=== PATIENT | male | born 1965 | race Caucasian/White ===

== ENCOUNTER 2019-12-13 08:02 | Outpatient (CLI) | payer OTHER | END 2019-12-13 23:59 | disposition home or self-care (01) | LOC: PETCFH 08:02 | PROVIDERS: ATTEND Student in an Organized Health Care Education/Training Program | DX: E11.22 Type 2 diabetes mellitus with diabetic chronic kidney disease (principal); E11.21 Type 2 diabetes mellitus with diabetic nephropathy; I12.9 Hypertensive chronic kidney disease with stage 1 through stage 4 chronic kidney disease, or unspecified chronic kidney disease; N18.5 Chronic kidney disease, stage 5; R14.0 Abdominal distension (gaseous); F32.9 Major depressive disorder, single episode, unspecified; M62.81 Muscle weakness (generalized); E78.5 Hyperlipidemia, unspecified; R11.0 Nausea; Z79.4 Long term (current) use of insulin | CPT/HCPCS: 78264; A9541 ==

== ENCOUNTER 2021-01-03 09:03 | Day surgery (SDC) | payer OTHER ==
[~2021-01-03] VITALS: Ht 177.8 cm; Wt 125.4 kg
[2021-01-03 09:29] VITALS: BP 181/80
[2021-01-03] MEDS ORDERED: NOVOLOG SQ-INSULIN (09:39)
[2021-01-03] MEDS ORDERED: CINA30TA2 PO (09:39)
[2021-01-03] MEDS ORDERED: [UNRECOGNIZED DRUG - OTHER] SQ-INSULIN (09:39)
[2021-01-03] MEDS ORDERED: AMLODIPINE PO (09:39)
[2021-01-03] MEDS ORDERED: LISI40TA9 PO (09:39)
[2021-01-03] MEDS ORDERED: CALCITROL PO (09:39)
[2021-01-03] MEDS ORDERED: CHLORHEXIDINE 15 ML UDC MM ONE (10:00)
[2021-01-03] MEDS ORDERED: SODIUM CHLORIDE 0.9% 1,000 ML IV SCH (10:00)
[2021-01-03 10:15] LABS: BASOPHILS % (AUTO) 1 % (0-1); EOSINOPHILS % (AUTO) 3 % (1-7); LYMPHOCYTES % (AUTO) 17 % (22-44); MEAN CORPUSCULAR HEMOGLOBIN 32.8 pg (27.5-34.5); MEAN CORPUSCULAR HGB CONC 34.8 g/dL (33.2-36.2); MONOCYTES % (AUTO) 7 % (2-9); NEUTROPHILS % (AUTO) 72 % (42-75); PLATELET COUNT 279 x10^3/uL (130-400); RED BLOOD COUNT 3.57 x10^6/uL (4.38-5.82); RED CELL DISTRIBUTION WIDTH 14.9 % (9.4-14.8)
[2021-01-03 10:16] LABS: MD NO
[2021-01-03 10:17] LABS: INTERNATIONAL NORMALIZED RATIO 0.96 (0.93-1.1); PROTHROMBIN TIME 10.3 Seconds (9.6-11.5)
[2021-01-03 10:19] LABS: ALANINE AMINOTRANSFERASE 18 U/L (12-78); ALBUMIN 3.4 g/dL (3.4-5.0); ANION GAP 9 mmol/L (5-15); CALCIUM 9.4 mg/dL (8.5-10.1); CHLORIDE 101 mmol/L (98-107)
[2021-01-03 10:22] LABS: ALKALINE PHOSPHATASE 97 U/L (45-117); BILIRUBIN,TOTAL 0.5 mg/dL (0.2-1.0); CREATININE 7.94 mg/dL (0.7-1.3); TOTAL PROTEIN 7.6 g/dL (6.4-8.2)
[2021-01-03] MEDS ORDERED: MIDAZOLAM 1 MG/ML, 2ML ONE (10:34)
[2021-01-03] MEDS ORDERED: FENTANYL PF 100 MCG/2ML ONE (10:34)
[2021-01-03] MEDS ORDERED: BUPIVACAINE/PF 0.5% ONE (10:56)
[2021-01-03] MEDS ORDERED: PROTAMINE SULFATE 10 MG/ML, 5ML ONE (10:56)
[2021-01-03] MEDS ORDERED: EPINEPHRINE 1 MG/ML, 1ML ONE (10:57)
[2021-01-03] MEDS ORDERED: HEPARIN 1,000 UNITS/ML, 30ML ONE (10:57)
[2021-01-03] MEDS ORDERED: LORazepam 2 MG/ML, 1ML IVPush PRN (12:00)
[2021-01-03] MEDS ORDERED: ALBUTEROL SULFATE 2.5 MG/3 ML NPPB PRN (12:00)
[2021-01-03] MEDS ORDERED: PROMETHAZINE 25 MG/ML, 1ML IVPush PRN (12:00)
[2021-01-03] MEDS ORDERED: MEPERIDINE/PF 25MG/0.5ML IVPush PRN (12:00)
[2021-01-03] MEDS ORDERED: HYDROmorphone 1 MG/ML, 1ML INJ IVPush PRN (12:00)
[2021-01-03] MEDS ORDERED: FENTANYL PF 100 MCG/2ML IV PRN (12:00)
[2021-01-03] MEDS ORDERED: LABETALOL 5MG/ML, 20ML IV PRN (12:00)
[2021-01-03] MEDS ORDERED: ACETAMINOPHEN 325 MG TABLET PO PRN (12:00)
[2021-01-03] MEDS ORDERED: hydrALAzine 20 MG/ML, 1ML IV PRN (12:00)
[2021-01-03] MEDS ORDERED: OXYcodone 5 MG/5 ML ORAL.SOL UDC PO PRN (12:00)
[2021-01-03] MEDS ORDERED: CEFAZOLIN 1,000 MG ONE (12:12)
[2021-01-03] MEDS ORDERED: DEXAMETHASONE 4 MG/ML, 1ML ONE (12:12)
[2021-01-03] MEDS ORDERED: LIDOCAINE-MPF 2% ,5ML ONE (12:12)
[2021-01-03] MEDS ORDERED: ONDANSETRON 2MG/ML, 2ML ONE (12:12)
[2021-01-03] MEDS ORDERED: PROPOFOL 10 MG/ML, 20ML ONE (12:12)
[2021-01-03] MEDS ORDERED: HYDR-1067 PO ×2 (13:24→13:38)
== END 2021-01-03 14:30 | disposition home or self-care (01) ==
LOC: OUT 09:03
PROVIDERS: ATTEND Surgery
DX: I12.0 Hypertensive chronic kidney disease with stage 5 chronic kidney disease or end stage renal disease (principal); E11.22 Type 2 diabetes mellitus with diabetic chronic kidney disease; N18.6 End stage renal disease; G47.33 Obstructive sleep apnea (adult) (pediatric); E66.01 Morbid (severe) obesity due to excess calories; Z68.39 Body mass index [BMI] 39.0-39.9, adult; Z79.4 Long term (current) use of insulin; Z79.899 Other long term (current) drug therapy; Z98.890 Other specified postprocedural states; Z20.822 Contact with and (suspected) exposure to COVID-19
CPT/HCPCS: 36821; 71045; 80053; 82962; 85025; 85610; 87635; 93005; J0171; J0690; J1100; J1644; J2250; J2405; J2704; J3010; J7030; J2720

== ENCOUNTER 2021-05-09 13:53 | Day surgery (SDC) | payer OTHER ==
[2021-05-08 10:04] LABS: BASOPHILS % (AUTO) 1 % (0-1); EOSINOPHILS % (AUTO) 3 % (1-7); LYMPHOCYTES % (AUTO) 13 % (22-44); MEAN CORPUSCULAR HEMOGLOBIN 33.6 pg (27.5-34.5); MEAN CORPUSCULAR HGB CONC 35.4 g/dL (33.2-36.2); MEAN PLATELET VOLUME 7.8 fL (7.4-10.4); MONOCYTES % (AUTO) 6 % (2-9); NEUTROPHILS % (AUTO) 77 % (42-75); PLATELET COUNT 213 x10^3/uL (130-400); RED BLOOD COUNT 3.41 x10^6/uL (4.38-5.82); RED CELL DISTRIBUTION WIDTH 14.6 % (9.4-14.8)
[2021-05-08 10:09] LABS: ALBUMIN 3.7 g/dL (3.4-5.0); ANION GAP 13 mmol/L (5-15); CALCIUM 8.8 mg/dL (8.5-10.1); CHLORIDE 95 mmol/L (98-107); CREATININE 7.38 mg/dL (0.7-1.3)
[2021-05-08 10:10] LABS: INTERNATIONAL NORMALIZED RATIO 0.94 (0.93-1.1); PROTHROMBIN TIME 10.1 Seconds (9.6-11.5)
[2021-05-08 10:15] LABS: ALANINE AMINOTRANSFERASE 23 U/L (12-78); ALKALINE PHOSPHATASE 130 U/L (45-117); BILIRUBIN,TOTAL 0.5 mg/dL (0.2-1.0); TOTAL PROTEIN 8.1 g/dL (6.4-8.2)
[~2021-05-09] VITALS: Ht 177.8 cm; Wt 120.7 kg
[~2021-05-09 13:53] MED LIST: AMLO-211 PO; AMLODIPINE PO; AMOX1TAB12 PO; ASCO100019 PO; CALCITROL PO; CINA30TA2 PO; FURO80TA3 PO; HYDR-2214 PO; INSU100I37 SC; LISI40TA9 PO; NOVOLOG SQ-INSULIN; PANT20TA4 PO; SEVE800T7 PO; Vitamin B12 PO; Vitamin D3 PO; [UNRECOGNIZED DRUG - OTHER] SQ-INSULIN
[2021-05-09] MEDS ORDERED: CHLORHEXIDINE 15 ML UDC PO ONE (15:00)
[2021-05-09] MEDS ORDERED: SODIUM CHLORIDE 0.9% 1,000 ML IV SCH (15:00)
[2021-05-09 15:06] VITALS: BP 171/80
[2021-05-09] MEDS ORDERED: BUPIVACAINE/PF 0.5% ONE (16:47)
[2021-05-09] MEDS ORDERED: FENTANYL PF 250 MCG/5ML ONE (16:47)
[2021-05-09] MEDS ORDERED: HEPARIN 5,000 UNITS/ML, 1ML ONE (17:01)
[2021-05-09] MEDS ORDERED: PROTAMINE SULFATE 10 MG/ML, 5ML ONE (17:01)
[2021-05-09] MEDS ORDERED: HEPARIN 1,000 UNITS/ML, 10ML ONE (17:01)
[2021-05-09] MEDS ORDERED: MIDAZOLAM 1 MG/ML, 2ML ONE (17:08)
[2021-05-09] MEDS ORDERED: LIDOCAINE-MPF 2% ,5ML ONE (17:08)
[2021-05-09] MEDS ORDERED: EPHEDRINE 50 MG/ML, 1ML IVPush PRN (17:30)
[2021-05-09] MEDS ORDERED: ONDANSETRON 2MG/ML, 2ML IVPush PRN (17:30)
[2021-05-09] MEDS ORDERED: LABETALOL 5MG/ML, 20ML IV PRN (17:30)
[2021-05-09] MEDS ORDERED: HYDROmorphone 1 MG/ML, 1ML INJ IVPush PRN (17:30)
[2021-05-09] MEDS ORDERED: FENTANYL PF 100 MCG/2ML IV PRN (17:30)
[2021-05-09] MEDS ORDERED: hydrALAzine 20 MG/ML, 1ML IV PRN (17:30)
[2021-05-09] MEDS ORDERED: OXYcodone 5 MG/5 ML ORAL.SOL UDC PO PRN (17:30)
[2021-05-09] MEDS ORDERED: ACETAMINOPHEN 325 MG TABLET PO PRN (17:30)
[2021-05-09] MEDS ORDERED: PROMETHAZINE 25 MG/ML, 1ML IVPush PRN (17:30)
[2021-05-09] MEDS ORDERED: SUCCINYLCHOLINE 20 MG/ML, 10ML ONE (17:31)
[2021-05-09] MEDS ORDERED: ONDANSETRON 2MG/ML, 2ML ONE (17:31)
[2021-05-09] MEDS ORDERED: DEXAMETHASONE 4 MG/ML, 1ML ONE (17:31)
[2021-05-09] MEDS ORDERED: PROPOFOL 10 MG/ML, 20ML ONE (17:31)
[2021-05-09] MEDS ORDERED: CEFAZOLIN 1,000 MG ONE (17:31)
[2021-05-09] MEDS ORDERED: VISIPAQUE 270 MG/ML, 50ML BOTTLE ONE (17:38)
[2021-05-09] MEDS ORDERED: HYDROmorphone 1 MG/ML, 1ML INJ ONE (17:43)
[2021-05-09] MEDS ORDERED: EPHEDRINE 50 MG/ML, 1ML ONE (17:54)
[2021-05-09] MEDS ORDERED: BUPIVACAINE/PF-EPI 0.5% 1:200K INFIL ONE (18:11)
[2021-05-09] MEDS ORDERED: HEPARIN 5,000 UNITS/ML, 1ML SQ ONE (18:11)
[2021-05-09] MEDS ORDERED: VISIPAQUE 270 MG/ML, 50ML BOTTLE IV ONE (18:15)
[2021-05-09] MEDS ORDERED: OXYcodone 5 MG/5 ML ORAL.SOL UDC ONE (20:11)
[2021-05-09] MEDS ORDERED: ACETAMINOPHEN 325 MG TABLET ONE (20:11)
[2021-05-09] MEDS ORDERED: FENTANYL PF 100 MCG/2ML ONE (20:11)
== END 2021-05-09 23:32 | disposition home or self-care (01) ==
LOC: OR 13:53 → 4NE 21:03 → OR 23:32
PROVIDERS: ATTEND Surgery
DX: I12.0 Hypertensive chronic kidney disease with stage 5 chronic kidney disease or end stage renal disease (principal); E11.22 Type 2 diabetes mellitus with diabetic chronic kidney disease; N18.6 End stage renal disease; E66.9 Obesity, unspecified; Z99.2 Dependence on renal dialysis; Z98.890 Other specified postprocedural states; Z20.822 Contact with and (suspected) exposure to COVID-19; Z79.4 Long term (current) use of insulin; Z79.899 Other long term (current) drug therapy; Z68.38 Body mass index [BMI] 38.0-38.9, adult
CPT/HCPCS: 36415; 49422; 80047; 80053; 82962; 85025; 85610; 85730; 93005; J0330; J0690; J1100; J1170; J1644; J2250; J2405; J2704; J3010; J7030; Q9966; U0003; U0005; 75710; G0378; J2720